=== PATIENT | male | born 1990 | race American Indian/Alaskan Native ===

== ENCOUNTER → 2020-06-26 11:21 | Outpatient (CLI) | payer MEDICAID, OTHER, SELFPAY ==
[2020-06-27 07:47] LABS: COVID19 Sendout Not Detected (Not Detect)
== END ==
PROVIDERS: Visit Provider Physician Assistant
DX: Z11.59 Encounter for screening for other viral diseases (principal)
CPT/HCPCS: 87635

== ENCOUNTER → 2020-07-24 08:44 | Outpatient (CLI) | payer MEDICAID, OTHER, SELFPAY ==
[2020-07-26 08:28] LABS: COVID19 Sendout Not Detected (Not Detect)
== END ==
PROVIDERS: Visit Provider Physician Assistant
DX: Z11.59 Encounter for screening for other viral diseases (principal)
CPT/HCPCS: 87635

== ENCOUNTER → 2020-07-27 07:30 | Outpatient (CLI) | payer MEDICAID, OTHER, SELFPAY ==
--- NOTE | 2020-08-02 08:27 | PM.PFT.1 ---
Pulmonary Function Test Referral & Results Date Patient Seen: 07/27/20 Requesting provider: Darrell Jonas Results: The spirometry demonstrates an FVC of 6.05 L which is 103% of predicted. The FEV1 was measured at 4.36 L which is 91% of predicted. The FEV1/FVC ratio was 72 which is 87% of predicted. No bronchodilator was administered no lung volumes were performed No diffusing capacity was performed Interpretation: This study demonstrates perhaps very mild obstructive lung disease based on minimal reduction FEV1/FVC ratio although could certainly be considered normal as well Compared to full PFTs performed in January 2017, current spirometry is essentially unchanged from previous
== END ==
PROVIDERS: PCP Family Medicine; Referring Provider Family Medicine; Visit Provider Family Medicine
DX: Z13.83 Encounter for screening for respiratory disorder NEC (principal); Z02.9 Encounter for administrative examinations, unspecified
CPT/HCPCS: 94010

== ENCOUNTER → 2021-01-15 16:32 | Outpatient (CLI) | payer MEDICAID, OTHER, SELFPAY ==
--- NOTE | 2021-01-15 16:37 | DI.RAD.S_ITS ---
PROCEDURE: XR LUMBAR SPINE MIN 4V INDICATIONS: LOW BACK PAIN TECHNIQUE: 5 views of the lumbar spine were acquired, including bilateral oblique views. COMPARISON: None. FINDINGS: Bones: 5 nonrib-bearing vertebrae are present. There is normal bony alignment. No vertebral body compression fractures. No suspicious bony lesions. Intervertebral disc height is normally preserved at all levels. Soft tissues: Overlying bowel gas pattern is normal. No suspicious soft tissue calcifications. Oblique images: No pars defects. IMPRESSION: 1. Normal examination. 2. No fracture. No acute osseous lesion. If symptoms and/or clinical suspicion for pathology persists, evaluation with MRI should be considered for further assessment. Dictated by: Miriam Link MD, PhD on 01/15/2021 at 17:41 Approved by: Miriam Link MD, PhD on 01/15/2021 at 17:42
== END ==
PROVIDERS: PCP Family Medicine; Referring Provider Family Medicine; Visit Provider Family Medicine
DX: M54.5 Low back pain (principal)
CPT/HCPCS: 72110